=== PATIENT | female | born 1960 | race Caucasian/White ===

== ENCOUNTER 2018-01-09 05:44 | Inpatient (IN) | payer OTHER ==
[2018-01-06 16:08] LABS: BASOPHILS % 0.7 % (0.0-1.0); EOSINOPHILS # (AUTO) 0.1 (0.0-0.4); EOSINOPHILS % 2.3 % (0.0-6.0); HEMATOCRIT 38.9 % (34.2-44.1); HEMOGLOBIN 12.6 g/dL (12.0-16.0); LYMPHOCYTES # (AUTO) 1.8 (1.0-3.2); MEAN CORPUSCULAR HEMOGLOBIN 26.9 pg (28-32); MEAN CORPUSCULAR HGB CONC 32.4 g/dL (31-35); MEAN CORPUSCULAR VOLUME 83.1 fL (81-99); MONOCYTES # (AUTO) 0.4 (0.2-0.8); MONOCYTES % 9.2 % (4.4-11.3); NEUTROPHILS % 45.6 % (38.7-80.0); PLATELET COUNT 191 x10e3/uL (140-360); RED BLOOD COUNT 4.68 x10e6/uL (3.6-5.1); RED CELL DISTRIBUTION WIDTH 14.8 % (11.7-14.4)
[2018-01-06 16:35] LABS: ALANINE AMINOTRANSFERASE 37 IU/L (0-55); ALBUMIN 4.2 g/dL (3.5-5.0); ALBUMIN/GLOBULIN RATIO 1.3 (0.8-2.0); ALKALINE PHOSPHATASE 59 IU/L (40-150); BLOOD UREA NITROGEN 8 mg/dL (7-26); BUN/CREATININE RATIO 9 (6-25); CALCIUM 9.8 mg/dL (8.4-10.2); CARBON DIOXIDE 28 mmol/L (22-29); CHLORIDE 99 mmol/L (98-107); CREATININE, SERUM 0.87 mg/dL (0.57-1.11); EST GLOMERULAR FILTRATION RATE > 60 ML/MIN (60-); GLUCOSE 105 mg/dL (74-118); SODIUM 139 mmol/L (136-145)
[2018-01-06 16:43] LABS: INR 0.95; PROTHROMBIN TIME 13.5 seconds (11.9-14.5)
[2018-01-06 16:44] LABS: PARTIAL THROMBOPLASTIN TIME 27.9 seconds (23.8-35.5)
[~2018-01-09 05:44] MED LIST: ASPIRIN325 MG PO; BIOTIN PO; CALCIUM PO; CO Q-10400 MG; DICLOFENAC SODIUM TOP; DULOXETINE; FLEXERIL; GABAPENTIN; GLUCOSAMINE &1 EAC1; HYDROCHLOROTHIA25 MG; IRON PO; LEVOTHYROXINE75 MCG PO; LUTEIN20 M1; LYSINE1000 MG; MAGNESIUM PO; MELATONIN; MILK THISTLE PO; MULTI-VITAMIN1 EACH; OMEGA 3 FISH O1 EACH; PANTOPRAZOLE SO40 MG PO; PERINDOPRIL ERBU4 MG; POTASSIUM GLUCO99 MG; PRAVASTATIN SOD40 MG; SALONPAS PATCH1 EAC1; TYLENOL WITH C1 EACH PO; VITAMIN B1 PO; VITAMIN B12 PO; VITAMIN B6 PO; VITAMIN C1000 MG; VITAMIN D32000 UNI1; ZOLPIDEM TARTRA10 MG PO
--- OUTSIDE RECORDS SUMMARY | 2018-01-09 05:46 | XMS REPORT ---
Author Author [facility] Address Unknown Phone Unavailable Care Team Providers Care Optoelectronics Engineer Name Role Phone Unavailable Unavailable Payers Payer Name Policy Type Policy Number Effective Date Expiration Date Problems This patient has no known problems. Allergies, Adverse Reactions, Alerts Allergy Name Allergy Type Status Severity Reaction(s) Onset Date Inactive Date Treating Clinician Comments diphenhydramine DA Active SD 2017-11-17 00:00:00 Medications This patient has no known medications.
[2018-01-09] MEDS ORDERED: CEFAZOLIN SOD 2 GM/D5W 50ML 50 ML IV ONE (06:08)
[2018-01-09] MEDS ORDERED: METFORMIN HCL500 MG PO (06:27)
[2018-01-09] MEDS ORDERED: DAYQUIL PO (06:27)
[2018-01-09] MEDS ORDERED: HYDROGEN PEROXIDE 120 ML BTL ONE (06:48)
[2018-01-09] MEDS ORDERED: BUPIVACAINE 0.25% 30ML SDV INJ ONE (06:48)
[2018-01-09] MEDS ORDERED: ONDANSETRON HCL INJ 2 MG/ML VIAL IV PRN (09:15)
[2018-01-09] MEDS ORDERED: SCOPOLAMINE 1.5 MG PATCH TOP SCH (09:15)
--- NOTE | 2018-01-09 09:52 | Operative Report ---
DATE OF PROCEDURE: January 09, 2018 PREOPERATIVE DIAGNOSES 1. Morbid obesity, body mass index 56. 2. Type 2 diabetes mellitus. 3. Hypertension. 4. Obstructive sleep apnea, on CPAP. POSTOPERATIVE DIAGNOSES 1. Morbid obesity, body mass index 56. 2. Type 2 diabetes mellitus. 3. Hypertension. 4. Obstructive sleep apnea, on CPAP. PREOPERATIVE INDICATIONS: Treat disease, prevent complications related to comorbid conditions of obesity. PROCEDURE: Laparoscopic vertical sleeve gastrectomy (CPT 70335). ANESTHESIA: General. GAS METER MECHANIC: Tyron Guerrero, surgical heel sprayer first (needed due to complexity of case). FLUIDS: 500 mL crystalloid. EBL: 150 mL. DRAINS: None. COMPLICATIONS: None. SPECIMENS: Partial stomach. GRAFTS: None. FINDINGS 1. Normal upper GI anatomy. 2. Negative intraoperative EGD leak test. PROCEDURAL DETAILS: The patient was brought to the operating room and was intubated under general endotracheal anesthesia. She was positioned supine with both arms abducted and all pressure points appropriately padded. She was sterilely prepped and draped in the usual fashion. A preprocedure pause was performed identifying the patient's name, perioperative antibiotics, intended procedure, and staff surgeon. A primary 5 mm left subcostal incision was made and a Veress needle was used to insufflate the abdomen. Four additional trocars were placed under direct visualization. No injuries were noted. The patient was positioned in reverse Trendelenburg position, and liver retractor was used to expose the proximal stomach and hiatus. The greater curvature of the stomach was mobilized using a [place] LigaSure device all the way up to the left crux of the diaphragm and distally to about 4 cm proximal to the pyloric valve. Once this was completed, an adult sized endoscope was placed through the oropharynx against the lesser curvature of the stomach to be used as a bougie. The greater curvature of the stomach was resected using multiple firings of a 60 mm endo-BE purple load Covidien stapling device reinforced with seam guard. We used a total of 5 staple loads. The specimen was removed from the right periumbilical port site. The port site was closed with 0 Vicryl suture using the Mohan-Giovany technique in a figure-of-8 fashion. Hemostasis was assured. I did use 5 mL of Evicel solution around the spleen and hilum where there was some mild oozing initially during the case. However, there was hemostasis prior to even placing the Evicel. Once this was completed, we did an intraoperative EGD leak test. No leaks were identified. We then removed the trocar and desufflated the abdomen. We closed the incision with 4-0 Monocryl suture in a subcuticular fashion and Dermabond dressings were applied. We used a total of 30 mL of 0.25% bupivacaine at both preperitoneal incision sites. Type of wound was type 2, clean and contaminated. The patient tolerated the procedure well. All surgical sponge and instrument counts were correct. Job#: [id number] REZA BECKER
[2018-01-09] MEDS ORDERED: MORPHINE SULFATE 2 MG/ML SYR ONE ×2 (10:06→12:08)
[2018-01-09] MEDS ORDERED: PROMETHAZINE HCL (IM) 25 MG/ML VIAL ONE (10:12)
[2018-01-09] MEDS ORDERED: FENTANYL CITRATE/PF 100MCG/2 ML INJ ONE ×2 (10:29→19:13)
--- NOTE | 2018-01-09 11:52 | History and Physical ---
REASON FOR ADMISSION: Elective bariatric surgery. HISTORY OF PRESENT ILLNESS: This is a 57-year-old white woman, who has a known history of extreme obesity, specifically body mass index of 55. The patient underwent successful laparoscopic sleeve gastrectomy today. The surgery was performed by her bariatric surgeon, namely Dr. Torres. The patient has a known history of hypertension and type-2 diabetes mellitus as well as sleep apnea. The patient states at this time she is having some regular postoperative pain. REVIEW OF SYSTEMS GENERAL: Weight has been stable. No fever or chills. HEENT: No headache. No vision changes. CARDIOVASCULAR: No chest pain. No shortness of breath or cough. She does use a CPAP machine at night. GI: Complains of abdominal pain at this time. : Has a Simmons catheter in place. NEUROMUSCULAR: Denies any limb weakness or numbness. PAST MEDICAL HISTORY 1. Extreme obesity, BMI 55. 2. Type-2 diabetes mellitus. 3. Hypertensive heart disease. 4. Obstructive sleep apnea. 5. Hyperlipidemia. 6. Previous tobacco smoker. 7. Bilateral knee degenerative joint disease. 8. Diabetic peripheral neuropathy. 9. Hypothyroidism. FAMILY HISTORY: Noncontributory. SOCIAL HISTORY: This woman is . Previous history of tobacco use. HOME MEDICATIONS 1. Tylenol No. 3 one pill daily as needed for arthritic pain. 2. Flexeril 10 mg once daily as needed for muscle spasm. 3. Cymbalta 60 mg daily. 4. Gabapentin 600 mg once daily. 5. Hydrochlorothiazide 25 mg daily. 6. Levothyroxine 75 mcg daily. 7. Meloxicam 15 mg once daily as needed for arthritic pain. 8. Metformin 500 mg once daily as needed for arthritis. ALLERGIES: BENADRYL SURGICAL HISTORY 1. Cholecystectomy. 2. Carpal tunnel surgery. 3. Left heart catheterization (no percutaneous coronary intervention performed). PHYSICAL EXAMINATION GENERAL: She is somnolent, but arousable. She is currently in the postanesthesia care unit. VITALS: Blood pressure 144/60, pulse 62, respiratory rate 16, oxygen saturation 97% on 2 L oxygen. Height is 5 feet 5 inches, and weight is 330 pounds. BMI 55. She is afebrile. INTEGUMENT: Skin is warm and dry. No pallor, jaundice or diaphoresis. HEENT: Anicteric sclerae with moist mucous membranes. NECK: Supple. CARDIOVASCULAR: Regular rate and rhythm. LUNGS: No rales, no rhonchi, no wheezes. ABDOMEN: Obese. No bowel sounds appreciated. EXTREMITIES: No edema or deformity. NEUROLOGIC: Intact. DIAGNOSES 1. Status post laparoscopic sleeve gastrectomy. 2. Extreme obesity. Body mass index 55. 3. Hypertensive heart disease. 4. Type-2 diabetes mellitus. 5. Sleep apnea. PLAN 1. Will order CPAP usage at night when the patient sleeps. 2. Blood pressure and blood glucose control. 3. Pain control. 4. Encourage incentive spirometer use. I spent 45 minutes in the care of this patient. Job#: [id number]
[2018-01-09 13:20] VITALS: BP 157/75
[2018-01-09 15:21] VITALS: BP 157/75
[2018-01-09] MEDS: SODIUM CHLORIDE 0.9% 1000ML 1,000 ML IV SCH ×3 (15:21→22:15)
[2018-01-09 16:00] VITALS: BP 144/77
[2018-01-09] MEDS: LIDOCAINE 5% PATCH TP SCH (16:27)
[2018-01-09] MEDS: MORPHINE SULFATE 2 MG/ML SYR IV PRN ×3 (16:27→22:07)
[2018-01-09] MEDS ORDERED: MIDAZOLAM HCL 2 MG/2 ML VIAL ONE (19:13)
[2018-01-09 20:00] VITALS: BP 143/68
[2018-01-09] MEDS ORDERED: ACETAMINOPHEN 1000 MG/100 ML IV ONE (20:03)
[2018-01-09] MEDS ORDERED: PHENYLEPHRINE HCL 1% 10 MG/ML VIAL ONE (20:03)
[2018-01-09] MEDS ORDERED: PROPOFOL IV EMULSION 10 MG/ML 20 ML VIAL ONE (20:03)
[2018-01-09] MEDS ORDERED: LIDOCAINE HCL 2% JELLY 5 ML TUBE ONE (20:03)
[2018-01-09] MEDS ORDERED: ONDANSETRON HCL INJ 2 MG/ML VIAL ONE (20:03)
[2018-01-09] MEDS ORDERED: SEVOFLURANE INHAL SOLN 250 ML PEN BTL ONE (20:03)
[2018-01-09] MEDS ORDERED: LIDOCAINE HCL 2% LOCAL INJ 5 ML SDV VIAL INJ ONE (20:03)
[2018-01-09] MEDS ORDERED: EPHEDRINE SULFATE INJ 50 MG/10 ML SYR ONE (20:03)
[2018-01-09] MEDS ORDERED: DEXAMETHASONE SOD PHOS INJ 4 MG/ML VIAL ONE (20:03)
[2018-01-10] VITALS: BP 141/67
[2018-01-10] MEDS: MORPHINE SULFATE 2 MG/ML SYR IV PRN ×8 (01:30→20:15)
[2018-01-10 04:00] VITALS: BP 147/68
[2018-01-10] MEDS: SODIUM CHLORIDE 0.9% 1000ML 1,000 ML IV SCH ×2 (05:44→16:31)
[2018-01-10 06:04] LABS: BASOPHILS % 0.5 % (0.0-1.0); HEMATOCRIT 32.9 % (34.2-44.1); HEMOGLOBIN 10.9 g/dL (12.0-16.0); LYMPHOCYTES # (AUTO) 1.5 (1.0-3.2); LYMPHOCYTES % 22.2 % (18.0-39.1); MEAN CORPUSCULAR HEMOGLOBIN 27.6 pg (28-32); MEAN CORPUSCULAR HGB CONC 33.1 g/dL (31-35); MEAN CORPUSCULAR VOLUME 83.3 fL (81-99); MONOCYTES # (AUTO) 0.4 (0.2-0.8); NEUTROPHILS # (AUTO) 4.7 (2.1-6.9); PLATELET COUNT 187 x10e3/uL (140-360); RED BLOOD COUNT 3.95 x10e6/uL (3.6-5.1)
[2018-01-10 06:26] LABS: ALANINE AMINOTRANSFERASE 22 IU/L (0-55); ALBUMIN 3.5 g/dL (3.5-5.0); ALBUMIN/GLOBULIN RATIO 1.3 (0.8-2.0); ALKALINE PHOSPHATASE 52 IU/L (40-150); ANION GAP 12.9 mmol/L (8-16); BLOOD UREA NITROGEN 5 mg/dL (7-26); BUN/CREATININE RATIO 6 (6-25); CALCIUM 8.9 mg/dL (8.4-10.2); CARBON DIOXIDE 29 mmol/L (22-29); CHLORIDE 103 mmol/L (98-107); CREATININE, SERUM 0.81 mg/dL (0.57-1.11); EST GLOMERULAR FILTRATION RATE > 60 ML/MIN (60-); GLUCOSE 111 mg/dL (74-118); MAGNESIUM 2.2 MG/DL (1.3-2.1); PHOSPHORUS 3.3 MG/DL (2.3-4.7); POTASSIUM 3.9 mmol/L (3.5-5.1); SODIUM 141 mmol/L (136-145)
[2018-01-10] MEDS ORDERED: HYDROCODONE/APAP 7.5MG-325MG 1 EA TAB PO PRN (07:15)
[2018-01-10] MEDS: LIDOCAINE 5% PATCH TP SCH (07:55)
[2018-01-10 08:00] VITALS: BP 185/81
[2018-01-10] MEDS: ENOXAPARIN SOD INJ 40 MG/0.4 ML SYR SC SCH ×2 (08:00→16:31)
[2018-01-10] MEDS: DULOXETINE HCL 30 MG DELAYED RELEASE PO SCH (11:20)
[2018-01-10] MEDS: ACETAMINOPHEN/CODEINE 300MG - 30MG TAB PO SCH ×3 (15:00→21:23)
[2018-01-10] MEDS: GABAPENTIN 300 MG CAP PO SCH ×2 (15:30→21:22)
[2018-01-10 16:00] VITALS: BP 144/67
[2018-01-10] MEDS: FERROUS SULFATE 325 MG TAB PO SCH (16:31)
[2018-01-10] MEDS: OMEGA 3 POLYUNSAT FATTY ACIDS 1000 MG SOFTGEL PO SCH (16:31)
[2018-01-10] MEDS: HYDROCHLOROTHIAZIDE 25 MG TAB PO SCH (16:31)
[2018-01-10 19:56] VITALS: BP 144/67
[2018-01-10 20:00] VITALS: BP 124/79
[2018-01-10] MEDS ORDERED: PRAVASTATIN 20 MG TAB PO SCH (21:00)
[2018-01-10] MEDS ORDERED: ZOLPIDEM TARTRATE 10 MG TAB PO SCH (21:00)
[2018-01-11] VITALS: BP 145/81
[2018-01-11] MEDS: SODIUM CHLORIDE 0.9% 1000ML 1,000 ML IV SCH ×3 (00:28→15:45)
[2018-01-11] MEDS: MORPHINE SULFATE 2 MG/ML SYR IV PRN ×2 (01:05→07:22)
[2018-01-11 04:00] VITALS: BP 134/63
[2018-01-11 06:17] LABS: BASOPHILS % 0.8 % (0.0-1.0); EOSINOPHILS # (AUTO) 0.2 (0.0-0.4); HEMATOCRIT 33.5 % (34.2-44.1); HEMOGLOBIN 10.7 g/dL (12.0-16.0); LYMPHOCYTES % 38.6 % (18.0-39.1); MEAN CORPUSCULAR HEMOGLOBIN 27.3 pg (28-32); MEAN CORPUSCULAR HGB CONC 31.9 g/dL (31-35); MEAN CORPUSCULAR VOLUME 85.5 fL (81-99); MONOCYTES # (AUTO) 0.4 (0.2-0.8); MONOCYTES % 7.1 % (4.4-11.3); NEUTROPHILS # (AUTO) 2.6 (2.1-6.9); NEUTROPHILS % 49.3 % (38.7-80.0); PLATELET COUNT 195 x10e3/uL (140-360); RED BLOOD COUNT 3.92 x10e6/uL (3.6-5.1); RED CELL DISTRIBUTION WIDTH 15.5 % (11.7-14.4)
[2018-01-11 06:56] LABS: ALANINE AMINOTRANSFERASE 19 IU/L (0-55); ALBUMIN 3.4 g/dL (3.5-5.0); ALBUMIN/GLOBULIN RATIO 1.2 (0.8-2.0); ALKALINE PHOSPHATASE 54 IU/L (40-150); ANION GAP 12.5 mmol/L (8-16); BLOOD UREA NITROGEN 6 mg/dL (7-26); BUN/CREATININE RATIO 7 (6-25); CALCIUM 8.8 mg/dL (8.4-10.2); CARBON DIOXIDE 30 mmol/L (22-29); CHLORIDE 103 mmol/L (98-107); CREATININE, SERUM 0.83 mg/dL (0.57-1.11); EST GLOMERULAR FILTRATION RATE > 60 ML/MIN (60-); GLUCOSE 101 mg/dL (74-118); POTASSIUM 3.5 mmol/L (3.5-5.1); SODIUM 142 mmol/L (136-145)
[2018-01-11 07:48] VITALS: BP 132/69
[2018-01-11 08:10] VITALS: BP 132/69
[2018-01-11] MEDS: LIDOCAINE 5% PATCH TP SCH (08:11)
[2018-01-11] MEDS: ENOXAPARIN SOD INJ 40 MG/0.4 ML SYR SC SCH (08:11)
[2018-01-11] MEDS: OMEGA 3 POLYUNSAT FATTY ACIDS 1000 MG SOFTGEL PO SCH (08:11)
[2018-01-11] MEDS: GABAPENTIN 300 MG CAP PO SCH ×2 (08:11→16:23)
[2018-01-11] MEDS: FERROUS SULFATE 325 MG TAB PO SCH (08:11)
[2018-01-11] MEDS: HYDROCHLOROTHIAZIDE 25 MG TAB PO SCH (08:11)
[2018-01-11] MEDS: DULOXETINE HCL 30 MG DELAYED RELEASE PO SCH (08:11)
[2018-01-11] MEDS: ACETAMINOPHEN/CODEINE 300MG - 30MG TAB PO SCH ×2 (08:11→16:23)
[2018-01-11] MEDS ORDERED: HYDROCHLOROTHIAZIDE 25 MG TAB PO SCH (09:00)
[2018-01-11] MEDS ORDERED: LEVOTHYROXINE SODIUM 75 MCG TAB PO SCH (09:00)
[2018-01-11] MEDS ORDERED: PANTOPRAZOLE SOD 40 MG TABEC PO SCH (09:00)
[2018-01-11] MEDS ORDERED: MULTIVITAMINS/MINERALS TAB PO SCH (09:00)
[2018-01-11] MEDS ORDERED: POTASSIUM CHLORIDE 10MEQ EA PO ONE (09:45)
--- NOTE | 2018-01-11 10:22 | Discharge Summary ---
ADMITTING DIAGNOSES 1. Extreme obesity. Body mass index 55. 2. Hypertensive heart disease. 3. Type-2 diabetes mellitus. 4. Obstructive sleep apnea. DISCHARGE DIAGNOSES 1. Status post laparoscopic vertical sleeve gastrectomy. 2. Extreme obesity, body mass index 55, complicating type-2 diabetes mellitus, hypertension and sleep apnea. 3. Hypertensive heart disease. 4. Type-2 diabetes mellitus. 5. Obstructive sleep apnea. HOSPITAL COURSE: This is a 57-year-old white woman who has a known history of extreme obesity, specifically calculated body mass index of 55. The patient was admitted to [facility] on January 09, 2018, and she underwent successful laparoscopic vertical sleeve gastrectomy that was performed by Dr. Torres. The patient's hospitalization was unremarkable. The patient did use her CPAP machine at night during this hospital stay. During this hospitalization, the patient's RADHA inhibitor was held, but she was continued on diuretics. On the day of discharge, the patient's hemoglobin was 10.7 g/dL. The patient's white blood cell count was 5200 with 49% segmented neutrophils. DISCHARGE MEDICATIONS 1. Hydrochlorothiazide 25 mg daily. 2. Ferrous sulfate 325 mg b.i.d. 3. Gabapentin 600 mg t.i.d. 4. Cymbalta 60 mg a day. 5. Pantoprazole 40 mg daily. 6. [place]-3 fish oil 1,200 mg b.i.d. 7. Multivitamin once daily. 8. Tylenol 650 mg q 6 hours prn fever.. 9. [place] 7.5 per 325 one pill every 4 hours p.r.n. pain, 25 prescribed (patient was told to avoid Tylenol No. 3 while on this medication). 10. Lidoderm 5% patch apply to the posterior cervical area daily as needed for pain. 11. Levothyroxine 75 mcg daily. 12. Zolpidem 10 mg nightly p.r.n. insomnia. 13. Metformin 500 mg daily. 14. Meloxicam 15 mg once daily as needed for arthritic pain. 15. Flexeril 10 mg once daily as needed for muscle pain. 16. The patient can resume her RADHA inhibitor, perindopril 4 mg once daily. FOLLOWUP INSTRUCTIONS: The patient was instructed to follow up with Dr. Torres within 1 week. The patient was instructed to follow up with her primary care doctor at [facility] in [place], [place], within the next 2 weeks. ALONDRA HAYWARD MD Job#: [id number] cc: LAURA TORRES MD MTDD
[2018-01-11] MEDS: MORPHINE SULFATE INJ 4 MG/ML INJ IV PRN ×2 (10:51→16:03)
[2018-01-11 12:04] VITALS: BP 112/65
[2018-01-11] MEDS ORDERED: NORCO 7.5-3251 EACH PO (15:30)
[2018-01-11 15:51] VITALS: BP 105/73
[2018-01-11] MEDS ORDERED: OMEGA 3 POLYUNSAT FATTY ACIDS 1000 MG SOFTGEL PO SCH (17:00)
[2018-01-12] MEDS ORDERED: LEVOTHYROXINE SODIUM 75 MCG TAB PO SCH (06:00)
== END 2018-01-11 17:00 | disposition home or self-care (01) | DRG 621 ==
LOC: OR 05:44 → PACU V 09:06 → MED/SURG 13:22
PROVIDERS: ADMIT Surgery; ATTEND Surgery
PROC: 0DB64Z3 Excision of Stomach, Percutaneous Endoscopic Approach, Vertical (ICD-10-PCS; principal; 2018-01-09 07:30)
DX: E66.01 Morbid (severe) obesity due to excess calories (principal); Z68.43 Body mass index [BMI] 50.0-59.9, adult; I11.9 Hypertensive heart disease without heart failure; G47.33 Obstructive sleep apnea (adult) (pediatric); E78.5 Hyperlipidemia, unspecified; Z87.891 Personal history of nicotine dependence; E11.42 Type 2 diabetes mellitus with diabetic polyneuropathy; E03.9 Hypothyroidism, unspecified; M17.0 Bilateral primary osteoarthritis of knee; K21.9 Gastro-esophageal reflux disease without esophagitis; M48.02 Spinal stenosis, cervical region; Z79.82 Long term (current) use of aspirin; Z79.84 Long term (current) use of oral hypoglycemic drugs
CPT/HCPCS: 36415; 80053; 82948; 83735; 84100; 85025; 85610; 85730; 86850; 86900; 93005; 96361; J0690; J1100; J1650; J2001; J2250; J2270; J2370; J2405; J2550; J7030